=== PATIENT | female | born 1960 | race Caucasian/White ===

== ENCOUNTER → 2017-01-29 | Outpatient (CLI) | payer BC ==
--- NOTE | 2017-01-30 09:36 | MM ---
Reason for exam: screening (asymptomatic). Last mammogram was performed 15 years and 9 months ago. History: Patient is postmenopausal. Benign stereotactic core biopsy of the right breast, August 21, 1999. Core biopsy of the right breast. Excisional biopsy of the left breast. Physical Findings: A clinical breast exam by your physician is recommended on an annual basis and results should be correlated with mammographic findings. MG Screening Mammo w CAD Bilateral CC and MLO view(s) were taken. Prior study comparison: May 15, 2001, bilateral screening mammogram. February 16, 2000, bilateral diagnostic mammogram. The breast tissue is almost entirely fat. There is no discrete abnormality. ASSESSMENT: Benign, BI-RAD 2 RECOMMENDATION: Routine screening mammogram of both breasts in 1 year.
== END | disposition home or self-care (01) ==
LOC: RADMAMWWP 07:15
PROVIDERS: ATTEND Family Medicine
DX: Z12.31 Encounter for screening mammogram for malignant neoplasm of breast (principal)

== ENCOUNTER → 2021-12-22 | Outpatient (CLI) | payer OTHER ==
[2021-12-22 14:17] LABS: Basophils # (A) 0.07 X 10*3/uL (0.00-0.10); Basophils % (A) 0.9 %; Eosinophils # (A) 0.66 X 10*3/uL (0.04-0.35); Eosinophils % (A) 8.5 %; HGB 13.9 g/dL (12.0-15.0); Immature Grans, Automated 0.3 %; Lymphocytes # (A) 3.56 X 10*3/uL (0.90-5.00); Lymphocytes % (A) 46.1 %; MCH 27.7 pg (27.0-32.0); MCHC 31.6 g/dL (32.0-37.0); MCV 87.6 fL (80.0-97.0); Mean Platelet Volume 10.2 fL (9.5-12.2); Monocytes # (A) 0.65 X 10*3/uL (0.20-1.00); Monocytes % (A) 8.4 %; NRBC Per 100 WBC 0 /100 WBCS (0.0-0.0); Neutrophils # (A) 2.76 X 10*3/uL (1.80-7.70); Neutrophils % (A) 35.8 %; Platelet Count 265 X 10*3/uL (140-440); RBC 5.02 X 10*6/uL (4.10-5.20); RDW 14.5 % (11.5-14.5); WBC 7.72 X 10*3/uL (4.50-10.00)
[2021-12-22 14:43] LABS: ALT 22 U/L (8-44); AST 32 U/L (13-35); African American GFR (CKD) 70.6 (60.0-200.0); Albumin 4.2 g/dL (3.8-4.9); Albumin/Globulin Ratio 1.33 (1.60-3.17); Alkaline Phosphatase 107 U/L (41-126); BUN/Creat Ratio 12.18 Ratio (12.00-20.00); Blood Urea Nitrogen 12.3 mg/dL (9.0-27.0); Calcium 9.6 mg/dL (8.7-10.3); Carbon Dioxide 23.3 mmol/L (20.0-27.5); Chloride 103 mmol/L (96-109); Chol/HDL Ratio 6.07 Ratio; Globulin 3.1 g/dL (1.6-3.3); Glucose 115 mg/dL (70-110); LDL Cholesterol,Calculated 124.2 mg/dL (0.0-131.0); Non-African American GFR(CKD) 60.9 (60.0-200.0); Potassium 4.4 mmol/L (3.5-5.5); Sodium 138 mmol/L (135-145); Total Protein 7.3 g/dL (6.2-8.2)
== END | disposition home or self-care (01) ==
LOC: LABWHC1 08:42
PROVIDERS: ATTEND Family Medicine
DX: Z00.00 Encounter for general adult medical examination without abnormal findings (principal); E11.40 Type 2 diabetes mellitus with diabetic neuropathy, unspecified
CPT/HCPCS: 36415; 80053; 80061; 83036; 84439; 84443; 85025

== ENCOUNTER → 2022-03-08 | Outpatient (CLI) | payer OTHER ==
--- NOTE | 2022-03-09 17:00 | MM ---
Reason for Exam: Screening (asymptomatic). Last mammogram was performed 5 year(s) and 1 month(s) ago. Patient History: Menarche at age 12. First Full-Term at age 22. Hysterectomy at age 39. Postmenopausal. Core Biopsy on the Right side. Excisional Biopsy on the Left side. 08/21/1999, Benign Stereotactic Core Biopsy on the right side. Risk Values: [place] 5 year model risk: 2.0%. NCI Lifetime model risk: 10.9%. Prior Study Comparison: 02/16/2000 Bilateral Diagnostic Mammogram, [facility]. 05/15/2001 Bilateral Screening Mammogram, [facility]. 01/29/2017 Bilateral Screening Mammogram, [facility]. Tissue Density: The breast tissue is almost entirely fat. Analyzed By CAD. Overall Assessment: Benign, BI-RAD 2 Management: Screening Mammogram of both breasts in 1 year. Electronically signed and approved by: Zeke Henao D.O. Radiologis
== END | disposition home or self-care (01) ==
LOC: RADMAMWWP 11:39
PROVIDERS: ATTEND Family Medicine
DX: Z12.31 Encounter for screening mammogram for malignant neoplasm of breast (principal); Z78.0 Asymptomatic menopausal state; Z98.890 Other specified postprocedural states
CPT/HCPCS: 77063; 77067

== ENCOUNTER → 2022-04-30 | Outpatient (CLI) | payer OTHER ==
--- NOTE | 2022-04-30 15:22 | CT ---
EXAMINATION TYPE: CT abdomen pelvis wo con CT DLP: 1073 mGycm, Automated exposure control for dose reduction was used. DATE OF EXAM: 04/30/2022 3:08 PM COMPARISON: CT abdomen pelvis most recent from 06/24/2014. CLINICAL INDICATION:Female, 61 years old with history of R10.9; medial abdominal pain that moves to t he left side TECHNIQUE: Axial CT of the abdomen and pelvis. Sagittal and coronal reformats were created on a [employer] workstation. Contrast used: None Oral contrast used: without Oral Contrast FINDINGS: LOWER CHEST: Unremarkable ABDOMEN LIVER: Diffusely hypoattenuating parenchyma. GALLBLADDER AND BILE DUCTS: The gallbladder is surgically absent. PANCREAS: Unremarkable. SPLEEN: Unremarkable. ADRENAL GLANDS: Unremarkable. KIDNEYS AND URETERS: No evidence of hydronephrosis or renal calculus. Right renal cyst. PELVIS BLADDER: Unremarkable REPRODUCTIVE: The uterus is surgically absent. Ovaries are not definitively visualized may be surgica lly absent. ABDOMEN & PELVIS STOMACH AND BOWEL: No evidence of bowel obstruction. Scattered clonic diverticula are present. The ap pendix is normal. PERITONEUM: No evidence of pneumoperitoneum or free fluid. VASCULATURE: No evidence of aortic aneurysm. Atherosclerosis of the arterial vasculature. MUSCULOSKELETAL: No acute osseous abnormalities LYMPH NODES: No gross evidence for lymphadenopathy. SOFT TISSUE/ABDOMINAL WALL: Unremarkable IMPRESSION: 1. No evidence for acute abdominal process. 2. Hepatic steatosis. 3. Colonic diverticulosis.
== END | disposition home or self-care (01) ==
LOC: RADCTMAIN 14:44
PROVIDERS: ATTEND Family Medicine
DX: K76.0 Fatty (change of) liver, not elsewhere classified (principal); K57.30 Diverticulosis of large intestine without perforation or abscess without bleeding
CPT/HCPCS: 74176

== ENCOUNTER → 2022-05-23 | Outpatient (CLI) | payer OTHER ==
[2022-05-23 14:41] LABS: Basophils # (A) 0.05 X 10*3/uL (0.00-0.10); Basophils % (A) 0.7 %; Eosinophils % (A) 7.2 %; HGB 14.8 g/dL (12.0-15.0); Immature Grans, Automated 0.3 %; Lymphocytes # (A) 2.75 X 10*3/uL (0.90-5.00); Lymphocytes % (A) 39.6 %; MCH 28.4 pg (27.0-32.0); MCHC 31.5 g/dL (32.0-37.0); MCV 90.2 fL (80.0-97.0); Mean Platelet Volume 10.6 fL (9.5-12.2); Monocytes % (A) 8.6 %; NRBC Per 100 WBC 0 /100 WBCS (0.0-0.0); Neutrophils # (A) 3.02 X 10*3/uL (1.80-7.70); Neutrophils % (A) 43.6 %; Platelet Count 252 X 10*3/uL (140-440); RBC 5.21 X 10*6/uL (4.10-5.20); RDW 14.6 % (11.5-14.5); WBC 6.94 X 10*3/uL (4.50-10.00)
[2022-05-23 18:21] LABS: ALT 25 U/L (8-44); AST 20 U/L (13-35); African American GFR (CKD) 71.4 (60.0-200.0); Albumin 4.4 g/dL (3.8-4.9); Albumin/Globulin Ratio 1.52 (1.60-3.17); Alkaline Phosphatase 125 U/L (41-126); Blood Urea Nitrogen 18.8 mg/dL (9.0-27.0); Carbon Dioxide 19.2 mmol/L (20.0-27.5); Chloride 105 mmol/L (96-109); Globulin 2.9 g/dL (1.6-3.3); Glucose 168 mg/dL (70-110); LDL Cholesterol,Calculated 118.8 mg/dL (0.0-131.0); Non-African American GFR(CKD) 61.6 (60.0-200.0); Potassium 4.8 mmol/L (3.5-5.5); Sodium 141 mmol/L (135-145); Total Protein 7.3 g/dL (6.2-8.2)
== END | disposition home or self-care (01) ==
LOC: LABWHC1 09:00
PROVIDERS: ATTEND Family Medicine
DX: E11.40 Type 2 diabetes mellitus with diabetic neuropathy, unspecified (principal)
CPT/HCPCS: 36415; 80053; 80061; 83036; 85025

== ENCOUNTER → 2022-08-28 | Outpatient (CLI) | payer OTHER ==
[2022-08-28 15:31] LABS: Basophils # (A) 0.06 X 10*3/uL (0.00-0.10); Basophils % (A) 0.8 %; Eosinophils # (A) 0.56 X 10*3/uL (0.04-0.35); Eosinophils % (A) 7.7 %; HCT 48.5 % (37.2-46.3); HGB 15.1 g/dL (12.0-15.0); Immature Grans, Automated 0.3 %; Lymphocytes % (A) 37.1 %; MCH 28.3 pg (27.0-32.0); MCHC 31.1 g/dL (32.0-37.0); MCV 90.8 fL (80.0-97.0); Mean Platelet Volume 10.7 fL (9.5-12.2); Monocytes # (A) 0.59 X 10*3/uL (0.20-1.00); Monocytes % (A) 8.1 %; NRBC Per 100 WBC 0 /100 WBCS (0.0-0.0); Neutrophils # (A) 3.34 X 10*3/uL (1.80-7.70); Platelet Count 256 X 10*3/uL (140-440); RBC 5.34 X 10*6/uL (4.10-5.20); RDW 14.2 % (11.5-14.5); WBC 7.27 X 10*3/uL (4.50-10.00)
[2022-08-28 15:48] LABS: ALT 30 U/L (8-44); AST 26 U/L (13-35); African American GFR (CKD) 81.1 (60.0-200.0); Albumin 4.5 g/dL (3.8-4.9); Albumin/Globulin Ratio 1.36 (1.60-3.17); Alkaline Phosphatase 133 U/L (41-126); Blood Urea Nitrogen 12.6 mg/dL (9.0-27.0); Calcium 9.9 mg/dL (8.7-10.3); Carbon Dioxide 24.7 mmol/L (20.0-27.5); Chloride 100 mmol/L (96-109); Chol/HDL Ratio 5.26 Ratio; Globulin 3.3 g/dL (1.6-3.3); Glucose 188 mg/dL (70-110); LDL Cholesterol,Calculated 127.3 mg/dL (0.0-131.0); Potassium 4.8 mmol/L (3.5-5.5); Sodium 139 mmol/L (135-145); Total Protein 7.8 g/dL (6.2-8.2)
[2022-08-28 18:13] LABS: HIV 2 AB Non-Reactive (Non-Reactive); HIV AB P24 Non-Reactive (Non-Reactive); HIV P24 AG Non-Reactive (Non-Reactive)
== END | disposition home or self-care (01) ==
LOC: LABWHC1 09:11
PROVIDERS: ATTEND Family Medicine
DX: Z11.4 Encounter for screening for human immunodeficiency virus [HIV] (principal); Z11.59 Encounter for screening for other viral diseases; E11.40 Type 2 diabetes mellitus with diabetic neuropathy, unspecified
CPT/HCPCS: 36415; 80053; 80061; 83036; 85025; 86803; 87390